=== PATIENT | male | born 1985 | race Caucasian/White ===

== ENCOUNTER 2019-02-10 10:52 | Emergency (ER) | payer SELFPAY ==
[~2019-02-10] VITALS: Ht 172.7 cm; Wt 55.5 kg
[2019-02-10 10:59] VITALS: Ht 172.7 cm; Wt 55.5 kg
[2019-02-10] MEDS ORDERED: VOLTAREN75 MG PO (12:02)
[2019-02-10] MEDS ORDERED: BACLOFEN20 M1 PO (12:02)
[2019-02-10 12:24] VITALS: BP 126/78
== END 2019-02-10 12:25 | disposition home or self-care (01) ==
LOC: D.ER 10:52
DX: S20.212A Contusion of left front wall of thorax, initial encounter (principal); Y04.2XXA Assault by strike against or bumped into by another person, initial encounter; Y93.89 Activity, other specified; Y92.89 Other specified places as the place of occurrence of the external cause

== ENCOUNTER 2019-03-13 14:02 | Emergency (ER) | payer MEDICAID ==
[~2019-03-13] VITALS: Ht 172.7 cm; Wt 56.8 kg
[~2019-03-13 14:02] MED LIST: BACLOFEN20 M1 PO; VOLTAREN75 MG PO
[2019-03-13 14:15] VITALS: Ht 172.7 cm; Wt 56.8 kg
[2019-03-13] MEDS ORDERED: TORADOL10 MG PO (15:26)
[2019-03-13] MEDS ORDERED: CLEOCIN HCL300 MG PO (15:26)
[2019-03-13 16:08] VITALS: BP 118/74
== END 2019-03-13 16:10 | disposition home or self-care (01) ==
LOC: D.ER 14:02
DX: L03.031 Cellulitis of right toe (principal)